=== PATIENT | female | born 2000 | race African-American/Black ===

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

== ENCOUNTER 2021-08-10 09:22 | Emergency (ER) | payer MEDICAID, OTHER ==
[~2021-08-10] VITALS: Ht 167.6 cm; Wt 75.0 kg
[2021-08-10 09:34] VITALS: BP 146/110
[2021-08-10] MEDS ORDERED: ACETAMINOPHEN 325MG TABLET PO ONE (10:00)
[2021-08-10] MEDS ORDERED: ACET-2708 MT (14:26)
== END 2021-08-10 16:25 | disposition home or self-care (01) ==
LOC: ER 09:22
DX: R22.0 Localized swelling, mass and lump, head (principal); F12.10 Cannabis abuse, uncomplicated; Z13.9 Encounter for screening, unspecified
CPT/HCPCS: 70486; 81025; 99284